=== PATIENT | female | born 1980 | race Caucasian/White ===

== ENCOUNTER 2019-10-26 16:15 | Emergency (ER) | payer MEDICAID ==
[~2019-10-26] VITALS: Ht 165.1 cm; Wt 61.9 kg
[2019-10-26 16:33] VITALS: Ht 165.1 cm; Wt 61.9 kg
[2019-10-26 17:37] LABS: BASOPHIL % 0.2 % (0-2); PLATELET COUNT 266 x10^3mcL (130-400); RED CELL DISTRIBUTION WIDTH 12.8 % (11.5-14.5)
[2019-10-26 18:47] VITALS: BP 108/67
[2019-11-01] MEDS ORDERED: IBU400 M2 PO (14:01)
== END 2019-10-26 18:51 | disposition home or self-care (01) ==
LOC: ED 16:15
PROVIDERS: Emergency Medicine
DX: O20.9 Hemorrhage in early pregnancy, unspecified (principal); Z88.0 Allergy status to penicillin; Z87.59 Personal history of other complications of pregnancy, childbirth and the puerperium
CPT/HCPCS: 36415

== ENCOUNTER 2019-10-28 12:10 | Inpatient (IN) | payer OTHER ==
[~2019-10-28] VITALS: Ht 165.1 cm; Wt 62.1 kg
[2019-10-28 13:10] VITALS: Ht 165.1 cm; Wt 62.1 kg
--- NOTE | 2019-10-28 13:48 | NUR ---
PER PT STS THAT SHE WAS HERE 2 WEEKS AGO FOR POSSIBLE TUBAL AND WAS INTRUCTED TO RETURN FOR HCG LEVELS. PT LAST MENSTRUAL WAS 08/31/19. PT STS THAT SHE HAS ESP[place] LOWER QUAD PAIN AND HAS BEEN ON BEDREST SO DOES NOT KNOW IF PAIN HAS INCREASED, "PRESSSURE/SHARP". PT STS THAT SHE HAS "BROWN" SPOTTING AND IS NOT SOAKING ANY PADS. A4. PT IS AAOX4. VSS. RESP E/U. WILL CONTINUE TO MONITOR.
[2019-10-28 14:07] LABS: BASOPHIL % 0.4 % (0-2); PLATELET COUNT 282 x10^3mcL (130-400); RED CELL DISTRIBUTION WIDTH 12.6 % (11.5-14.5)
--- NOTE | 2019-10-28 14:36 | NUR ---
NO ACUTE CHNAGES IN CONDITION, WAIITNG FOR FURTHER TESTS. SPOUSE AT BEDSIDE.
--- NOTE | 2019-10-28 15:39 | NUR ---
PT IN [place]
--- NOTE | 2019-10-28 16:22 | NUR ---
NO ACUTE CHNAGES IN CONDITION, WAITING FOR FURTHER DISPO.
--- NOTE | 2019-10-28 17:45 | NUR ---
REPORT GIVEN TO JAIME DIAZ, UPDATED ON STATUS,LABS AND VITALS. PT STABLE FOR ADMISSION. PT DENIES ANY PAIN OR VAGINAL BLEEDIGN AT THIS TIME. SKIN INTACT, HL TO LEFT HAND-INTACT.
[2019-10-28 18:13] VITALS: BP 120/74
[2019-10-28 18:18] LABS: CALCIUM 8.8 mg/dL (8.5-10.1); CARBON DIOXIDE 26.5 mmol/L (21-32); CHLORIDE SERUM 103 mmol/L (98-107); CREATININE SERUM 0.8 mg/dL (0.6-1.0); GFR1 > 60 mL/min; GLUCOSE SERUM 102 mg/dL (74-106); POTASSIUM SERUM 4.6 mmol/L (3.5-5.1); SODIUM SERUM 136 mmol/L (136-145)
[2019-10-28 18:22] LABS: T3 TOTAL 0.99 ng/mL
[2019-10-28 18:34] LABS: CHOLESTEROL/HDL RATIO 3.5; MAGNESIUM 2.4 mg/dL (1.8-2.4); PHOSPHOROUS 3.3 mg/dL (2.5-4.9)
[2019-10-28 18:50] LABS: FREE T4 1.13 ng/dL (0.76-1.46); FREE THYROXINE INDEX 2.8 ug/dL (1.4-4.5); T4(THYROXINE) 8.1 ug/dL (4.7-13.3)
--- NOTE | 2019-10-28 18:50 | NUR ---
PT RECEIVED FROM ED, REPORT GIVEN BY EMILY AGUAYO. PT IS AAOX4. NORMAL S1S2. LUNGS SOUNDS CTA, ON R/A. ABDOMEN TENDER UPON PALPATION, FLAT, NONDISTENDED. BOWEL SOUND ACTIVE X 4 QUADS. DENIES N/V/D AND CONSIPATION. SKIN CDI. NO EDEMA. PERIPHERAL PULSES PALPABLE. IV CATH TO , S/L. SITE WNL. PT ORIENTED TO ROOM AND CALL LIGHT. WILL ENDORSE ALL CARE TO NOC EMILY.
--- NOTE | 2019-10-28 19:15 | NUR ---
RECEIVED PT LAYING IN BED, AT BEDSIDE, DENIES PAIN OR DISCOMFORT, NO ACUTE DISTRESS NOTED. PT C/O BEING HUNGRY AND REQUSTING SOMETHING TO EAT. DR. SEGOVIA MADE AWARE, WILL ANTICIPATE DIET ORDERS. AA/OX4. MED-SURG, NO TELE, NO CP. PULSES EQUAL, NO EDEMA. BREATHING ON RA, NO SOB OR DYSPNEA. ABD SOFT AND FLAT WITH ACTIVE BOWEL SOUNDS, MILD ABD TENDERNESS. VOIDS URINE FREELY. AMBULATORY AND ABLE TO REPOSITION SELF IN BED. IV TO LH IN PLACE, DRY, PATENT, INTACT, S/L, NO S&S PHLEBITIS OR INFITLRATION NOTED. COMFORT AND SAFETY MEASURES IN PLACE. ALL NEEDS ASSESSED AND ATTENDED TO. CALL LIGHT WITHIN REACH. WILL CONTINUE TO MONITOR
[2019-10-28 19:34] LABS: microscopic required? NO
[2019-10-28 19:39] LABS: UA SPECIFIC GRAVITY 1.015 (1.005-1.035); urine erythrocyte NEGATIVE (NEGATIVE)
--- NOTE | 2019-10-28 21:47 | NUR ---
SPOKE WITH DR. TORRES, REQUESTING UPDATE ON PT'S STATUS. PER DR. TORRES POSSIBLE D/C PT TOMORROW. WILL UPDATE DR. SHORT. PAGED AT THIS TIME. WILL ANTICIPATE CALL BACK
[2019-10-28 22:00] VITALS: BP 123/62
--- NOTE | 2019-10-28 22:07 | NUR ---
DR. TORRES IS TO SEE PT AT THIS TIME
--- NOTE | 2019-10-28 22:30 | NUR ---
AT BEDSIDE ACCOMPANIED BY DR. Benjamin TORRES. PLAN OF CARE DISCUSSED WITH PT AND PT'S . PER DR. TORRES, PT CLEARED FOR DISCHARGE TOMORROW, NO PLANS FOR SURGERY. ADVANCE DIET. PT TO FOLLOW UP WITH DR. TORRES OUTPATIENT. ALL QUESTIONS AND CONCERNS PER PT ADDRESSED.
--- NOTE | 2019-10-29 05:05 | NUR ---
NO SIGNIFICANT CHANGES TO REPORT, PT COMPLIED WITH NURSING CARE THROUGHOUT THE SHIFT WITH NO ACUTE EVENTS OVERNIGHT. NO ACUTE DISTRESS OBSERVED AT THIS TIME, PT LAYING IN BED, BREATHING EVEN AND UNLABORED. COMFORT AND SAFETY MEASURES MAINTAINED. ALL NEEDS ASSESSED AND ATTENED TO. CALL LIGHT WITHIN REACH. WILL CONTINUE TO MONITOR AND ENDORSE CARE TO DAY SHIFT NURSE
[2019-10-29 05:55] VITALS: BP 103/57
[2019-10-29 06:19] LABS: BASOPHIL % 0.3 % (0-2); PLATELET COUNT 249 x10^3mcL (130-400); RED CELL DISTRIBUTION WIDTH 13.1 % (11.5-14.5)
[2019-10-29 06:26] LABS: CALCIUM 8.5 mg/dL (8.5-10.1); CARBON DIOXIDE 29.9 mmol/L (21-32); CHLORIDE SERUM 106 mmol/L (98-107); CREATININE SERUM 0.7 mg/dL (0.6-1.0); GFR1 > 60 mL/min; GLUCOSE SERUM 78 mg/dL (74-106); MAGNESIUM 2.1 mg/dL (1.8-2.4); PHOSPHOROUS 4.2 mg/dL (2.5-4.9); POTASSIUM SERUM 4.8 mmol/L (3.5-5.1); SODIUM SERUM 141 mmol/L (136-145)
--- NOTE | 2019-10-29 07:05 | NUR ---
RECIEVED PT RESTING IN BED AT THIS TIME WITH NO C/O ANY DISTRESS. PT DENIES ANY ACTIVE VAGINAL BLEEDING AT THIS TIME.A/O X4 WITH NO MCGRAW OR DIZZINESS. LUNGS CTAB ON RA. LH IV CDI AND PATENT. SAFETY PRECAUTIONS IN PLACE, CALL LIGHT WITHIN REACH, WILL MONITOR.
[2019-10-29 08:38] VITALS: BP 114/52
--- NOTE | 2019-10-29 09:30 | NUR ---
PT STABLE WITH NO C/O ANY DISTRESS. SAFETY PRECAUTIONS IN PLACE, CALL LIGHT WITHIN REACH, WILL CONTINUE TO MONITOR.
[2019-10-29] MEDS ORDERED: IBU400 M2 PO (10:30)
[2019-10-29 10:43] VITALS: BP 114/52
--- NOTE | 2019-10-29 11:24 | NUR ---
PT STABLE FOR DISCHARGE PER MD ORDER. ALL DISWCHARGE INSTRUCTIONS, EDUCATION, AND PRESCRIPTIONS GIVEN TO PT AND SAHE VERBALIZES UNDERSTANDING. ALL DISCHARGE PAPERWORK SIGNED BY PT. IV REMOVED WITH CATHETER INTACT, NO REDNESS OR INFLAMMATION NOTED. ID BANDS REMOVED FROM PT ARM. PT ESCORTED DOWN TO LOBBY VIA WC BY MEDICAL SERVICE TECHNICIAN AND FAMILY MEMBER AT SIDE. ALL PERSONAL BELONGINGS IN HAND.
[2019-11-01] MEDS ORDERED: IBU400 M2 PO (14:01)
== END 2019-10-29 11:35 | disposition home or self-care (01) | DRG 566 ==
LOC: ED 12:10 → MU 16:56
PROVIDERS: ADMIT Internal Medicine
DX: O00.90 Unspecified ectopic pregnancy without intrauterine pregnancy (principal); E78.1 Pure hyperglyceridemia; Z88.0 Allergy status to penicillin; Z91.018 Allergy to other foods; Z85.43 Personal history of malignant neoplasm of ovary
CPT/HCPCS: 84439; G0378

== ENCOUNTER 2020-02-26 23:56 | Emergency (ER) | payer BC ==
[~2020-02-26] VITALS: Ht 165.1 cm; Wt 64.9 kg
[~2020-02-26 23:56] MED LIST: IBU400 M2 PO
[2020-02-27 00:03] VITALS: Ht 165.1 cm; Wt 64.9 kg
[2020-02-27 00:36] LABS: BASOPHIL % 0.2 % (0-2); PLATELET COUNT 265 x10^3mcL (130-400); RED CELL DISTRIBUTION WIDTH 12.8 % (11.5-14.5)
[2020-02-27 00:50] LABS: CALCIUM 9.1 mg/dL (8.5-10.1); CHLORIDE SERUM 104 mmol/L (98-107); CREATININE SERUM 0.8 mg/dL (0.6-1.0); GFR1 > 60 mL/min; GLUCOSE SERUM 94 mg/dL (74-106); POTASSIUM SERUM 4.1 mmol/L (3.5-5.1); SODIUM SERUM 139 mmol/L (136-145)
[2020-02-27 00:56] LABS: ALBUMIN 4.1 g/dL (3.4-5.0); ALKALINE PHOSPHATASE 27 U/L (46-116); ALT/SGPT 26 U/L (14-59); AST/SGOT 12 U/L (15-37); BILIRUBIN TOTAL 0.2 mg/dL (0.20-1.00); MAGNESIUM 2.2 mg/dL (1.8-2.4); TOTAL PROTEIN, SERUM 7.1 g/dL (6.4-8.2)
[2020-02-27 02:18] VITALS: BP 119/87
== END 2020-02-27 02:18 | disposition home or self-care (01) ==
LOC: ED 23:56
PROVIDERS: Emergency Medicine
DX: R20.2 Paresthesia of skin (principal)
CPT/HCPCS: 36415; Q0092